=== PATIENT | male | born 1995 ===

== ENCOUNTER 2023-12-31 11:30 | Emergency (ER) | payer BC ==
[~2023-12-31] VITALS: Ht 182.9 cm; Wt 93.0 kg
[2023-12-31 11:33] VITALS: TEMP 98.5; O2SAT 99
[2023-12-31] MEDS: LACTATED RINGERS 1,000 ML IV SCH (12:02)
[2023-12-31] MEDS: ONDANSETRON HCL 4MG/2ML INJ IV STA (12:03)
[2023-12-31] MEDS: KETOROLAC 15MG/ML VIAL IV ONE ×2 (12:13→13:43)
[2023-12-31 12:28] LABS: BASOPHILS % 0.7 % (0.0-2.0); DIFFERENTIAL COMMENT 0; EOSINOPHILS % 0.7 % (0.0-5.0); HEMATOCRIT. 45.5 % (42.0-52.0); HEMOGLOBIN. 16.3 g/dL (14.0-18.0); LYMPHOCYTES % 30.6 % (20.0-50.0); MEAN CORPUSCULAR HEMOGLOBIN 30.2 pg (28.0-32.0); MEAN CORPUSCULAR HGB CONC 35.8 g/dL (31.0-37.0); MEAN CORPUSCULAR VOLUME 84.4 fL (80.0-94.0); MEAN PLATELET VOLUME 8.8 fl (7.4-10.4); MONOCYTES % 6.2 % (2.0-8.0); NEUTROPHILS % 61.8 % (40.0-76.0); PLATELET 250 x1000/uL (130-400); RED BLOOD CELL COUNT 5.39 mill/uL (4.7-6.1); RED CELL DISTRIBUTION WIDTH 13.4 % (11.6-14.6); WHITE BLOOD COUNT 10.4 x1000/uL (4.5-11.0)
[2023-12-31 12:30] LABS: CHLORIDE 107 mEq/L (98-107); POTASSIUM 3.3 mEq/L (3.5-5.1); SODIUM 140 mEq/L (136-145)
[2023-12-31 12:31] LABS: CARBON DIOXIDE 24 mEq/L (21-32)
[2023-12-31 12:32] LABS: CALCIUM 9.6 mg/dL (8.7-10.4)
[2023-12-31 12:36] LABS: CREATININE 1.2 mg/dL (0.6-1.3); GLUCOSE 126 mg/dL (70-105)
[2023-12-31 12:37] LABS: UREA NITROGEN BLOOD 10 mg/dL (9-23)
[2023-12-31 12:38] LABS: ALANINE AMINOTRANSFERASE 39 IU/L (10-49); ALBUMIN 4.5 g/dL (3.2-4.8); ASPARTATE AMINOTRANSFERASE 29 IU/L (<34)
[2023-12-31 12:39] LABS: BILIRUBIN DIRECT 0.3 mg/dL (<=3.0); BILIRUBIN TOTAL 0.9 mg/dL (0.1-1.0); PROTEIN TOTAL 7.6 g/dL (6.0-8.3)
[2023-12-31] MEDS ORDERED: ONDA-239 PO (13:35)
[2023-12-31] MEDS ORDERED: KETO10TA2 MT (13:35)
[2023-12-31] MEDS ORDERED: TAMS-11 MT (13:35)
[2023-12-31] MEDS: ONDANSETRON HCL 4MG/2ML INJ IV ONE (14:11)
[2023-12-31 14:32] LABS: CLARITY URINE CLEAR (CLEAR); COLOR URINE YELLOW (YELLOW); GLUCOSE URINE NEGATIVE (NEGATIVE); KETONES URINE NEGATIVE (NEGATIVE); LEUKOCYTE ESTERASE URINE NEGATIVE (NEGATIVE); NITRITE URINE NEGATIVE (NEGATIVE); OCCULT BLOOD URINE 2+ (NEGATIVE); PROTEIN URINE NEGATIVE (NEGATIVE); SPECIFIC GRAVITY URINE 1.014 (1.005-1.030); UROBILINOGEN URINE 0.2 E.U./dL (0.2-1.0)
[2023-12-31 14:44] LABS: MUCUS URINE TRACE /lpf (NONE/TRACE); RBC URINE 15-25 /hpf (0-2); SQUAMOUS EPITHELIAL CELL URINE NONE SEEN /lpf (RARE/1+); WBC URINE 0-2 /hpf (0-2)
[2023-12-31 14:45] LABS: BACTERIA URINE TRACE
[2023-12-31 15:00] VITALS: BP 133/82; PULSE 76; RESP 15; O2SAT 98
== END 2023-12-31 15:37 | disposition home or self-care (01) ==
LOC: ER 12:49
DX: N20.2 Calculus of kidney with calculus of ureter (principal)
CPT/HCPCS: 80076; 80048; 81003; 83690; 85025; 36415; 74176; 96361; 96374; 96375; 96376; 99285; J1885; J2405; Z7610 ×4